=== PATIENT | male | born 1965 | race Caucasian/White ===

== ENCOUNTER 2019-11-12 20:48 | Emergency (ER) | payer SELFPAY ==
[~2019-11-12] VITALS: Ht 170.2 cm; Wt 78.0 kg
[2019-11-12 20:56] VITALS: BP 121/82
[2019-11-12] MEDS ORDERED: HYDR-3165 PO (21:18)
--- NOTE | 2019-11-12 21:19 | PHYS DOC ---
Past History Past Medical History: No Pertinent History Past Surgical History: No Surgical History Alcohol Use: Occasionally Drug Use: None Adult General Chief Complaint Chief Complaint: DENTAL PROBLEM HPI HPI 54-year-old male presents with left upper dental pain. The patient has had a toothache intermittently hurts in this area for a few months. This morning, the pain increased significantly and the patient now has 7 out of 10 persistent sharp pain in the left upper molar. He does not currently have a dentist. The patient denies fever or chills. He has no other complaints. Review of Systems Review of Systems Constitutional: Denies fever or chills [] Eyes: Denies change in visual acuity, redness, or eye pain [] HENT: Denies nasal congestion or sore throat. Dental pain [] Respiratory: Denies cough or shortness of breath [] Cardiovascular: No additional information not addressed in HPI [] GI: Denies abdominal pain, nausea, vomiting, bloody stools or diarrhea [] : Denies dysuria or hematuria [] Musculoskeletal: Denies back pain or joint pain [] Integument: Denies rash or skin lesions [] Neurologic: Denies headache, focal weakness or sensory changes [] Endocrine: Denies polyuria or polydipsia [] All other systems were reviewed and found to be within normal limits, except as documented in this note. Allergies Allergies Allergies Coded Allergies Type Severity Reaction Last Updated Verified Penicillins Allergy Intermediate 11/12/19 Yes Physical Exam Physical Exam Constitutional: Well developed, well nourished, no acute distress, non-toxic appearance. [] HENT: Normocephalic, atraumatic, bilateral external ears normal, oropharynx moist, no oral exudates, nose normal. Tenderness of the left upper dental area, broken tooth #15 [] Eyes: PERRLA, EOMI, conjunctiva normal, no discharge. [] Neck: Normal range of motion, no tenderness, supple, no stridor. [] Cardiovascular:Heart rate regular rhythm, no murmur [] Lungs & Thorax: Bilateral breath sounds clear to auscultation [] Abdomen: Bowel sounds normal, soft, no tenderness, no masses, no pulsatile masses. [] Skin: Warm, dry, no erythema, no rash. [] Back: No tenderness, no CVA tenderness. [] Extremities: No tenderness, no cyanosis, no clubbing, ROM intact, no edema. [] Neurologic: Alert and oriented X 3, normal motor function, normal sensory function, no focal deficits noted. [] Psychologic: Affect normal, judgement normal, mood normal. [] Current Patient Data Vital Signs Vital Signs Date Time Temp Pulse Resp B/P (MAP) Pulse Ox O2 Delivery O2 Flow Rate FiO2 11/12/19 20:56 98.2 70 16 96 Room Air EKG EKG [] Radiology/Procedures Radiology/Procedures [] Course & Med Decision Making Course & Med Decision Making Pertinent Labs and Imaging studies reviewed. (See chart for details) I checked the narcotic database and the patient has no injuries to last 2 years. He does appear to be in moderate to severe pain. I will give him one Bailey 7.5 in the ED and a short prescription of Bailey 5/325 for home. I will also place him on clindamycin prophylactically to prevent infection for 7 days. We will also give the first dose in the ED. He is stable for discharge at this time. [] Dragon Disclaimer Dragon Disclaimer This electronic medical record was generated, in whole or in part, using a voice recognition dictation system. Departure Departure: Impression: Primary Impression: Tooth fracture Disposition: HOME, SELF-CARE Condition: STABLE Referrals: PCP,NO (PCP) Patient Instructions: Tooth Fracture Scripts Hydrocodone Bit/Acetaminophen (NORCO 5-325 TABLET) 1 Each Tablet 1 TAB PO PRN Q6HRS PRN for PAIN, #10 TAB 0 Refills Prov: JOHANN GAMEZ DO 11/12/19 Problem Qualifiers Primary Impression: Tooth fracture Encounter type: initial encounter Fracture type: closed Qualified Codes: S02.5XXA - Fracture of tooth (traumatic), initial encounter for closed fracture JOHANN GAMEZ DO Nov 12, 2019 21:19
[2019-11-12] MEDS ORDERED: CLINDAMYCIN HCL 150 MG CAPSULE PO ONE (21:30)
[2019-11-12] MEDS ORDERED: HYDROcodone/APAP 7.5/325MG 1 TAB TABLET PO ONE (21:30)
== END 2019-11-12 21:31 | disposition home or self-care (01) ==
LOC: ER 20:48
DX: S02.5XXA Fracture of tooth (traumatic), initial encounter for closed fracture (principal); Z88.0 Allergy status to penicillin; X58.XXXA Exposure to other specified factors, initial encounter; Y93.89 Activity, other specified; Y92.89 Other specified places as the place of occurrence of the external cause; Y99.8 Other external cause status
CPT/HCPCS: 99283

== ENCOUNTER 2020-06-30 13:06 | Emergency (ER) | payer SELFPAY ==
[~2020-06-30] VITALS: Ht 167.6 cm; Wt 72.7 kg
[~2020-06-30 13:06] MED LIST: HYDR-3165 PO
[2020-06-30] MEDS ORDERED: MAG HYDROX/AL HYDROX/SIMETH 30 ML ORAL.SUSP PO ONE (13:45)
[2020-06-30] MEDS ORDERED: IOHEXOL 300 MG/ML 75 ML VIAL. IV ONE (13:45)
[2020-06-30] MEDS ORDERED: PANTOPRAZOLE IV 40 MG VIAL. IVP ONE (13:45)
[2020-06-30] MEDS ORDERED: FAMOTIDINE 20 MG TABLET PO ONE (13:45)
[2020-06-30] MEDS ORDERED: ONDANSETRON PF 4 MG/2 ML VIAL. IVP ONE (13:45)
[2020-06-30] MEDS ORDERED: CONTRAST GIVEN. MC PRN (13:45)
--- NOTE | 2020-06-30 13:46 | PHYS DOC ---
Past History Past Medical History: No Pertinent History Past Surgical History: No Surgical History Alcohol Use: Occasionally Drug Use: None General Adult EDM: Chief Complaint: ABDOMINAL PAIN HPI: HPI: The history was obtained from the patient. Patient is a 55-year-old male with no reported PMH who presents with a chief complaint of abdominal pain. Patient states he has had intermittent abdominal discomfort for the past month. He states it is diffuse in nature. He states the pain is aching and burning. He states some foods seem to worsen the pain occasionally but he cannot spec ifically state which foods. He states the pain is relieved with nothing. He has not tried anything. Denies any vomiting or nausea. Denies any metallic taste or belching. Denies any dysuria or hematuria. He denies any testicular pain or swelling. Denies any changes to stool caliber or consistency. Denies any history of fevers. Denies daily alcohol usage. Does endorse tobacco abuse. Denies any previous abdominal surgeries. No other complaints. Review of Systems: Review of Systems: Constitutional: Denies fever or chills Eyes: Denies change in visual acuity HENT: Denies nasal congestion or sore throat Respiratory: Denies cough or shortness of breath Cardiovascular: Denies chest pain or edema GI: Positive for abdominal pain : Denies dysuria Musculoskeletal: Denies back pain or joint pain Integument: Denies rash Neurologic: Denies headache, focal weakness or sensory changes Endocrine: Denies polyuria or polydipsia Lymphatic: Denies swollen glands Psychiatric: Denies depression or anxiety Heart Score: Risk Factors: Risk Factors: DM, Current or recent (<one month) smoker, HTN, HLP, family history of CAD, obesity. Risk Scores: Score 0 - 3: 2.5% MACE over next 6 weeks - Discharge Home Score 4 - 6: 20.3% MACE over next 6 weeks - Admit for Clinical Observation Score 7 - 10: 72.7% MACE over next 6 weeks - Early Invasive Strategies Current Medications: Current Meds: Current Medications Medications (Trade) Dose Ordered Sig/Martina Start Time Stop Time Status Last Admin Dose Admin Al Hydroxide/Mg Hydroxide (Mylanta Plus Xs) 30 ml 1X ONCE 06/30/20 13:45 06/30/20 13:46 UNV Famotidine (Pepcid) 20 mg 1X ONCE 06/30/20 13:45 06/30/20 13:46 UNV Ondansetron HCl (Zofran) 4 mg 1X ONCE 06/30/20 13:45 06/30/20 13:46 UNV Pantoprazole Sodium (Protonix Vial) 40 mg 1X ONCE 06/30/20 13:45 06/30/20 13:46 UNV Allergies: Allergies: Allergies Coded Allergies Type Severity Reaction Last Updated Verified Penicillins Allergy Intermediate 11/12/19 Yes Physical Exam: PE: Constitutional: Well developed, well nourished, no acute distress, non-toxic appearance. [] HENT: Normocephalic, atraumatic, bilateral external ears normal, oropharynx moist, no oral exudates, nose normal. [] Eyes: PERRLA, EOMI, conjunctiva normal, no discharge. [] Neck: Normal range of motion, no tenderness, supple, no stridor. [] Cardiovascular:Heart rate regular rhythm, no murmur [] Lungs & Thorax: Bilateral breath sounds clear to auscultation [] Abdomen: Mild diffuse tenderness to palpation. No involuntary guarding or rigidity noted. : Testicles without tenderness to palpation. No inguinal masses palpated. Circumcised penis. Skin: Warm, dry, no erythema, no rash. [] Back: No tenderness, no CVA tenderness. [] Extremities: No tenderness, no cyanosis, no clubbing, ROM intact, no edema. [] Neurologic: Alert and oriented X 3, normal motor function, normal sensory function, no focal deficits noted. [] Psychologic: Affect normal, judgement normal, mood normal. [] Current Patient Data: Labs: Laboratory Tests Test 06/30/20 13:34 White Blood Count 8.5 x10^3/uL Red Blood Count 5.41 x10^6/uL Hemoglobin 16.2 g/dL Hematocrit 48.6 % Mean Corpuscular Volume 90 fL Mean Corpuscular Hemoglobin 30 pg Mean Corpuscular Hemoglobin Concent 33 g/dL Red Cell Distribution Width 13.5 % Platelet Count 298 x10^3/uL Neutrophils (%) (Auto) 61 % Lymphocytes (%) (Auto) 29 % Monocytes (%) (Auto) 5 % Eosinophils (%) (Auto) 4 % Basophils (%) (Auto) 1 % Neutrophils # (Auto) 5.2 x10^3uL Lymphocytes # (Auto) 2.5 x10^3/uL Monocytes # (Auto) 0.4 x10^3/uL Eosinophils # (Auto) 0.3 x10^3/uL Basophils # (Auto) 0.1 x10^3/uL Sodium Level 141 mmol/L Potassium Level 3.8 mmol/L Chloride Level 103 mmol/L Carbon Dioxide Level 31 mmol/L Anion Gap 7 Blood Urea Nitrogen 12 mg/dL Creatinine 1.3 mg/dL Estimated GFR (Cockcroft-Gault) 57.7 BUN/Creatinine Ratio 9 Glucose Level 100 mg/dL Calcium Level 9.1 mg/dL Total Bilirubin 0.5 mg/dL Direct Bilirubin 0.1 mg/dL Aspartate Amino Transf (AST/SGOT) 14 U/L Alanine Aminotransferase (ALT/SGPT) 16 U/L Alkaline Phosphatase 85 U/L Total Protein 7.1 g/dL Albumin 3.6 g/dL Albumin/Globulin Ratio 1.0 Lipase 78 U/L Current Medications Medications (Trade) Dose Ordered Sig/Martina Route PRN Reason Start Time Stop Time Status Last Admin Dose Admin Famotidine (Pepcid) 20 mg 1X ONCE PO 06/30/20 13:45 06/30/20 13:46 DC 06/30/20 13:46 Ondansetron HCl (Zofran) 4 mg 1X ONCE IVP 06/30/20 13:45 06/30/20 13:46 DC 06/30/20 13:46 Pantoprazole Sodium (Protonix Vial) 40 mg 1X ONCE IVP 06/30/20 13:45 06/30/20 13:46 DC Al Hydroxide/Mg Hydroxide (Mylanta Plus Xs) 30 ml 1X ONCE PO 06/30/20 13:45 06/30/20 13:46 DC 06/30/20 13:46 Iohexol (Omnipaque 300 Mg/ml) 75 ml 1X ONCE IV 06/30/20 13:45 06/30/20 13:46 DC 06/30/20 13:56 Info (Do NOT chart on this entry -- for MONITORING) 1 each PRN DAILY PRN MC SEE COMMENTS 06/30/20 13:45 07/02/20 13:44 EKG: EKG: [] Radiology/Procedures: Radiology/Procedures: [] Course & Med Decision Making: Course & Med Decision Making Pertinent Labs and Imaging studies reviewed. (See chart for details) Patient is a well-appearing 55-year-old male who presents with chief complaint of diffuse intermittent abdominal pain over the past month or 2. Initial vital signs unremarkable. Exam unremarkable noted above. CT imaging was obtained. Nonspecific left adrenal mass was identified. I do not feel this explains the patient's current symptoms. I did notified him of this incidental imaging finding and encouraged him to follow-up with his primary care physician. Remainder of CAT scan is nonacute. Labs been reassuring. Urinalysis was attempted to be obtained but the patient states he does not have to urinate. He is requesting discharge home after medication. Given is not having any urinary symptoms this will be discontinued. Low suspicion for UTI. I feel symptoms could related to dyspepsia. He will be discharged home with Pepcid, Bentyl, and Zofran as needed. He was given a list of primary care doctors to follow-up with. He was instructed to return in 2 to 3 days should his symptoms not improve or worsen. He expressed understanding. He has tolerated p.o. Repeat abdominal exam remains benign. Stable for discharge home. Cornelius Disclaimer: Cornelius Disclaimer: This electronic medical record was generated, in whole or in part, using a voice recognition dictation system. Departure Departure: Impression: Primary Impression: Generalized abdominal pain Additional Impression: Left adrenal mass Disposition: 01 HOME/RESIDENCE PRIOR TO ADM Condition: GOOD Referrals: PCPARABELLA (PCP) Patient Instructions: Heartburn Additional Instructions: Please return the emergency department 2 to 3 days should your symptoms not improve or worsen. Please follow-up with your primary care physician in the next week. Scripts Famotidine (PEPCID) 20 Mg Tablet 20 MG PO BID for dyspepsia for 7 Days, #14 TAB Prov: KIMBERLI SENIOR DO 06/30/20 Dicyclomine Hcl (DICYCLOMINE HCL) 20 Mg Tablet 20 MG PO QIDPRN PRN for PAIN, #16 TAB Prov: KIMBERLI SENIOR DO 06/30/20 Ondansetron Hcl (ZOFRAN) 8 Mg Tablet 4 MG PO TID PRN PRN for NAUSEA, #9 TAB Prov: KIMBERLI SENIOR DO 06/30/20 Justification of Admission: Justification of Admission: Justification of Admission Dx: N/A KIMBERLI SENIOR DO Jun 30, 2020 13:46
[2020-06-30 13:53] LABS: BASO # 0.1 x10^3/uL (0.0-0.2); BASO % 1 % (0-3); EOS # 0.3 x10^3/uL (0.0-0.7); EOS % 4 % (0-3); HEMATOCRIT 48.6 % (39.0-53.0); HEMOGLOBIN 16.2 g/dL (13.0-17.5); LYMPH # 2.5 x10^3/uL (1.0-4.8); LYMPH % 29 % (24-48); MEAN CORPUSCULAR HEMOGLOBIN 30 pg (25-35); MEAN CORPUSCULAR HGB CONC 33 g/dL (31-37); MEAN CORPUSCULAR VOLUME 90 fL (79-100); MONO # 0.4 x10^3/uL (0.0-1.1); MONO % 5 % (0-9); NEUT # 5.2 x10^3uL (1.8-7.7); NEUT % 61 % (31-73); PLATELET COUNT 298 x10^3/uL (140-400); RED BLOOD COUNT 5.41 x10^6/uL (4.30-5.70); RED CELL DISTRIBUTION WIDTH 13.5 % (11.5-14.5); WHITE BLOOD COUNT 8.5 x10^3/uL (4.0-11.0)
[2020-06-30 14:01] LABS: CALCIUM 9.1 mg/dL (8.5-10.1); CREATININE 1.3 mg/dL (0.7-1.3); GFR 57.7; POTASSIUM 3.8 mmol/L (3.5-5.1)
[2020-06-30 14:08] LABS: ALBUMIN 3.6 g/dL (3.4-5.0); DIRECT BILIRUBIN 0.1 mg/dL (0.0-0.2); TOTAL BILIRUBIN 0.5 mg/dL (0.2-1.0); TOTAL PROTEIN 7.1 g/dL (6.4-8.2)
--- NOTE | 2020-06-30 14:18 | RAD ---
CT abdomen pelvis with contrast dated 06/30/2020. No comparison available. CLINICAL INDICATION: Diffuse abdominal pain. TECHNIQUE: Contiguous axial imaging the M pelvis performed after the intravenous administration of 75 cc Omnipaque 300. One or more of the following individualized dose reduction techniques were utilized for this examination: 1. Automated exposure control 2. Adjustment of the mA and/or kV according to patient size 3. Use of iterative reconstruction technique. FINDINGS: Limited images of lung bases are clear. Heart size within normal limits. No pleural or pericardial effusion. Liver is homogeneous. No focal hepatic mass. Biliary tree normal in caliber. Gallbladder unremarkable. Spleen is normal in size. Pancreas is unremarkable. There is a 3.4 cm mass at the left adrenal gland. The right adrenal gland is unremarkable. Kidneys are unremarkable. No hydronephrosis. Unopacified GI tract normal in caliber and contour. No focal bowel wall thickening. No inflammatory stranding in the mesentery. The appendix is normal in caliber. There are few scattered diverticula within the distal colon. No paracolonic inflammatory changes. No ascites or lymphadenopathy. Abdominal aorta normal in caliber. Images of the pelvis show nondistended urinary bladder. Prostate gland is upper limits of normal in size. No free fluid or pelvic lymphadenopathy. Bone windows show no acute findings. Mild multilevel spondylosis. IMPRESSION: 1. No acute abnormality of abdomen or pelvis. Normal appendix. 2. Indeterminate mass at the left adrenal gland. Statistically this most likely represents a benign lesion such as adrenal adenoma. Adrenal MRI would better evaluate, particularly if there is a known history of malignancy. 3. Diverticulosis with no evidence of acute diverticulitis. Electronically signed by: Allan Simpson MD (06/30/2020 2:15 PM) [id number]
[2020-06-30] MEDS ORDERED: DICY20TA3 PO (14:30)
[2020-06-30] MEDS ORDERED: ONDA8TAB9 PO (14:30)
[2020-06-30] MEDS ORDERED: FAMO-63 PO (14:30)
[2020-06-30 14:36] VITALS: BP 130/88
== END 2020-06-30 14:40 | disposition home or self-care (01) ==
LOC: ER 13:06
DX: E27.8 Other specified disorders of adrenal gland (principal); R10.84 Generalized abdominal pain; Z72.0 Tobacco use; Z88.0 Allergy status to penicillin
CPT/HCPCS: 36415; 74177; 80053; 80076; 83690; 85025; 96374; 96375; 99285; C9113; J2405; Q9967

== ENCOUNTER 2020-09-01 18:24 | Emergency (ER) | payer SELFPAY ==
[~2020-09-01] VITALS: Ht 167.6 cm; Wt 70.0 kg
[~2020-09-01 18:24] MED LIST changes: +DICY20TA3 PO; +FAMO-63 PO; +ONDA8TAB9 PO
--- NOTE | 2020-09-01 18:46 | PHYS DOC ---
Past History Past Medical History: No Pertinent History Past Surgical History: No Surgical History Smoking: Cigarettes Alcohol Use: Occasionally Drug Use: Cocaine, Marijuana General Adult EDM: Chief Complaint: ABDOMINAL PAIN HPI: HPI: " .. I ve been really hurting in my gut... I had something like this back in June.. I am not sure ..whats going. on...".." really I have had chronic intermittent abdomen pain for months".. Patient is a 55 year old male who presents with above hx and complaints severe generalized abd. pain. Pt. had previous episode of severe abdomen pain in June of this year. Pt. denies any specific ill contacts. Patient denies any recent travel. Has had problems with GERD type complaints in the past. Has had some sensitivity to spicy foods or high-fat foods. Patient does not use alcohol daily. Does smoke. No previous abdomen surgeries. Patient denies any specific ill contacts. Patient denies any history of immunosuppression. Patient denies any history of colitis and gallbladder disease with him . Patient is adopted so he does not know much family history. Patient does relate his recently had an STD but does not know the name of infection. Patient denies any dysuria. Review of Systems: Review of Systems: Constitutional: Denies fever or chills Eyes: Denies change in visual acuity HENT: Denies nasal congestion or sore throat Respiratory: Denies cough or shortness of breath Cardiovascular: Denies chest pain or edema GI: Complains of generalized abdominal pain, nausea. Denies, vomiting, bloody stools or diarrhea : Denies dysuria Musculoskeletal: Denies back pain or joint pain Integument: Denies rash Neurologic: Denies headache, focal weakness or sensory changes Endocrine: Denies polyuria or polydipsia Lymphatic: Denies swollen glands Psychiatric: Denies depression or anxiety Heart Score: HEART Score for Chest Pain: HEART Score for Chest Pain Response (Comments) Value History Slighlty/Non-Suspicious 0 ECG Normal 0 Age >45 - < 65 1 Risk Factors 1 or 2 Risk Factors 1 Troponin < Normal Limit 0 Total 2 Risk Factors: Risk Factors: DM, Current or recent (<one month) smoker, HTN, HLP, family history of CAD, obesity. Risk Scores: Score 0 - 3: 2.5% MACE over next 6 weeks - Discharge Home Score 4 - 6: 20.3% MACE over next 6 weeks - Admit for Clinical Observation Score 7 - 10: 72.7% MACE over next 6 weeks - Early Invasive Strategies Family History: Family History: Patient is adopted and does not know family history Current Medications: Current Meds: See nursing for home meds Allergies: Allergies: Allergies Coded Allergies Type Severity Reaction Last Updated Verified Penicillins Allergy Intermediate 11/12/19 Yes Physical Exam: PE: Constitutional: Moderate acute distress, non-toxic appearance. [] HENT: Normocephalic, atraumatic, bilateral external ears normal, oropharynx moist, no oral exudates, nose normal. [] Eyes: PERRLA, EOMI, conjunctiva normal, no discharge. [] Neck: Normal range of motion, no tenderness, supple, no stridor. [] Cardiovascular:Heart rate regular rhythm, no murmur [] Lungs & Thorax: Bilateral breath sounds equal with few scattered wheezes on auscultation [] Abdomen: Bowel sounds decreased, soft, generalized tenderness, no masses, no pul satile masses. [] Rebound to epigastric and agustina umbilical area. Circumcised male. Testicles nontender. No penile discharge. Skin: Warm, dry, no erythema, no rash. [] Back: No tenderness, no CVA tenderness. [] Extremities: No tenderness, no cyanosis, no clubbing, ROM intact, no edema. Mild psoas on right Neurologic: Alert and oriented X 3, normal motor function, normal sensory function, no focal deficits noted. [] Psychologic: Affect anxious , judgement normal, mood normal. [] Current Patient Data: Vital Signs: Vital Signs Date Time Temp Pulse Resp B/P (MAP) Pulse Ox O2 Delivery O2 Flow Rate FiO2 09/01/20 18:33 98.3 60 16 113/70 (84) 99 Room Air EKG: EKG: My interpretation EKG shows a sinus rhythm at 61 bpm. Slightly prolonged CA interval at 224 ms. [] Radiology/Procedures: Radiology/Procedures: [[address] [address] IMAGING REPORT Signed PATIENT: MARIA A BRANCH DACCOUNT: [id number] : 1965 LOCATION: ER AGE: 55 SEX: M EXAM STATUS: REG ER ORD. PHYSICIAN: RUTH PEACE MD REASON: pain, OMNI 300, 75ml & OMNI 240, 30ml PROCEDURE: CT ABD PELV W/ORAL&IV CONTRAST Exam: CT of abdomen and pelvis with contrast INDICATION: Pain TECHNIQUE: Sequential axial images through the abdomen and pelvis obtained following the administration of 75 mL of Omni 300 IV contrast. Sagittal and coronal reformatted images were reconstructed from the axial data and reviewed. Comparisons: 06/30/2020 FINDINGS: Heart size is normal. No pericardial effusion. Visualized lung bases are clear. No pleural effusion. Liver, spleen, pancreas, and gallbladder are unremarkable. There is a 3.1 cm nodule in the left adrenal gland. Kidneys demonstrate symmetric enhancement. No perinephric inflammation or hydronephrosis. No renal or ureteral calculi are identified. Bladder is distended and appears thin-walled. Prostate is not enlarged. Large and small bowel are unremarkable. Appendix is normal. No free intra-abdominal air or fluid. No obstruction. Abdominal aorta has a normal course and caliber. Abdominal vasculature is patent. No enlarged abdominal lymph nodes are identified. No suspicious osseous lesions or acute fractures. IMPRESSION: 1. No acute processes identified within the abdomen or pelvis. 2. There is a 3.1 cm nodule in the left adrenal gland. This is incompletely characterized on this study. Further evaluation with nonemergent/outpatient adrenal protocol CT or MRI is recommended. Exposure: One or more of the following in the visualized dose reduction techniques were utilized for this examination: 1. Automated exposure control 2. Adjustment of the MA and/or KV according to patient size 3. Use of iterative of reconstructive technique Electronically signed by: Giorgi Loomis MD (09/01/2020 11:18 PM) [id number] DICTATED AND SIGNED BY: GIORGI LOOMIS MD DATE: 09/01/20 2318 CC: RUTH PEACE MD; PCP,NO ~ ][address] [address] IMAGING REPORT Signed PATIENT: MARIA A BRANCH DACCOUNT: [id number] : 1965 LOCATION: ER AGE: 55 SEX: M EXAM STATUS: REG ER ORD. PHYSICIAN: RUTH PEACE MD REASON: pain PROCEDURE: ACUTE ABDOMEN SERIES Exam: Acute abdominal series INDICATION: Pain TECHNIQUE: Frontal view of the chest with upright and supine views the abdomen Comparisons: None FINDINGS: The cardiomediastinal silhouette and pulmonary vessels are within normal limits. The lung and pleural spaces are clear. Air and stool are noted throughout the colon to level the rectum in a nonobstructive bowel gas pattern. No suspicious masses or calcifications. Visualized osseous structures are unremarkable. IMPRESSION: 1. No acute cardiopulmonary process. 2. Nonobstructive bowel gas pattern. Electronically signed by: Giorgi Loomis MD (09/01/2020 7:35 PM) [id number] DICTATED AND SIGNED BY: GIORGI LOOMIS MD DATE: 09/01/201934 CC: RUTH PEACE MD; PCP,NO ~ Course & Med Decision Making: Course & Med Decision Making Pertinent Labs and Imaging studies reviewed. (See chart for details) [] Patient encouraged to have a clear fluid diet for the next 48 hours. No solids. No milk products. Patient avoid illicit drug use. Patient recommended to get EGD and colonoscopy. Patient will be started on Pepcid 20 mg twice sydni y. Follow-up with primary care. Return if any concerns. Impression: 1. Abdomen Pain 2. UDS 3. + Cocaine / MJ/ Tobacco Use Dragon Disclaimer: Cornelius Disclaimer: This electronic medical record was generated, in whole or in part, using a voice recognition dictation system. Departure Departure: Disposition: 01 [place] HOME SELF CARE/HOMELESS Condition: STABLE Referrals: PCP,NO (PCP) Scripts Famotidine (PEPCID) 20 Mg Tablet 20 MG PO BID for gastritis for 30 Days, #60 TAB Prov: RUTH PEACE MD 09/02/20 Dragnia Disclaimer This chart was dictated in whole or in part using Voice Recognition software in a busy, high-work load, and often noisy Emergency Department environment. It may contain unintended and wholly unrecognized errors or omissions. RUTH PEACE MD Sep 01, 2020 18:46
[2020-09-01] MEDS: IV RINGERS SOLUTION,LACTATED 1,000 ML IV SCH (18:50)
[2020-09-01] MEDS: KETOROLAC 30 MG/ML VIAL. IVP ONE (18:51)
[2020-09-01] MEDS: ONDANSETRON PF 4 MG/2 ML VIAL. IVP ONE (18:51)
[2020-09-01] MEDS: FAMOTIDINE 20 MG/2 ML VIAL IVP ONE (18:51)
[2020-09-01 19:00] LABS: BASO # 0.1 x10^3/uL (0.0-0.2); BASO % 1 % (0-3); EOS # 0.3 x10^3/uL (0.0-0.7); EOS % 4 % (0-3); HEMATOCRIT 44.2 % (39.0-53.0); HEMOGLOBIN 14.7 g/dL (13.0-17.5); LYMPH # 3.1 x10^3/uL (1.0-4.8); LYMPH % 33 % (24-48); MEAN CORPUSCULAR HEMOGLOBIN 30 pg (25-35); MEAN CORPUSCULAR HGB CONC 33 g/dL (31-37); MEAN CORPUSCULAR VOLUME 89 fL (79-100); MONO # 0.6 x10^3/uL (0.0-1.1); MONO % 6 % (0-9); NEUT # 5.2 x10^3uL (1.8-7.7); NEUT % 56 % (31-73); PLATELET COUNT 300 x10^3/uL (140-400); RED BLOOD COUNT 4.95 x10^6/uL (4.30-5.70); RED CELL DISTRIBUTION WIDTH 13.9 % (11.5-14.5); WHITE BLOOD COUNT 9.3 x10^3/uL (4.0-11.0)
--- NOTE | 2020-09-01 19:04 | EKG ---
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
[2020-09-01 19:08] LABS: CALCIUM 8.9 mg/dL (8.5-10.1); CREATININE 1.1 mg/dL (0.7-1.3); POTASSIUM 3.6 mmol/L (3.5-5.1)
[2020-09-01 19:14] LABS: ALBUMIN 3.4 g/dL (3.4-5.0); DIRECT BILIRUBIN 0.1 mg/dL (0.0-0.2); TOTAL BILIRUBIN 0.3 mg/dL (0.2-1.0); TOTAL PROTEIN 6.8 g/dL (6.4-8.2)
--- NOTE | 2020-09-01 19:38 | RAD ---
Exam: Acute abdominal series INDICATION: Pain TECHNIQUE: Frontal view of the chest with upright and supine views the abdomen Comparisons: None FINDINGS: The cardiomediastinal silhouette and pulmonary vessels are within normal limits. The lung and pleural spaces are clear. Air and stool are noted throughout the colon to level the rectum in a nonobstructive bowel gas pattern. No suspicious masses or calcifications. Visualized osseous structures are unremarkable. IMPRESSION: 1. No acute cardiopulmonary process. 2. Nonobstructive bowel gas pattern. Electronically signed by: Giorgi Lee MD (09/01/2020 7:35 PM) [id number]
[2020-09-01 20:06] LABS: BARBITURATES NEG (NEG); BENZODIAZEPINES NEG (NEG); CANNABINOIDS POS (NEG); COCAINE POS (NEG); METHADONE NEG (NEG); OPIATES NEG (NEG); PHENCYCLIDINE NEG (NEG)
[2020-09-01 20:07] LABS: BILIRUBIN,URINE SMALL (NEG); CLARITY,URINE CLEAR; COLOR,URINE AMBER; GLUCOSE,URINE NEG (NEG)
[2020-09-01 20:11] LABS: BACTERIA,URINE 0 /HPF (0-FEW); NITRITE,URINE NEG (NEG); SQUAMOUS EPITHELIAL CELL,UR OCC /LPF
[2020-09-01 20:13] LABS: AMPHETAMINE/METHAMPHETAMINE NEG (NEG)
[2020-09-01] MEDS ORDERED: CONTRAST GIVEN. MC PRN (21:45)
[2020-09-01] MEDS: IOHEXOL 240 MG/ML 50ML VIAL. PO ONE (22:56)
[2020-09-01] MEDS: IOHEXOL 300 MG/ML 75 ML VIAL. IV ONE (22:56)
--- NOTE | 2020-09-01 23:21 | RAD ---
Exam: CT of abdomen and pelvis with contrast INDICATION: Pain TECHNIQUE: Sequential axial images through the abdomen and pelvis obtained following the administration of 75 mL of Omni 300 IV contrast. Sagittal and coronal reformatted images were reconstructed from the axial data and reviewed. Comparisons: 06/30/2020 FINDINGS: Heart size is normal. No pericardial effusion. Visualized lung bases are clear. No pleural effusion. Liver, spleen, pancreas, and gallbladder are unremarkable. There is a 3.1 cm nodule in the left adrenal gland. Kidneys demonstrate symmetric enhancement. No perinephric inflammation or hydronephrosis. No renal or ureteral calculi are identified. Bladder is distended and appears thin-walled. Prostate is not enlarged. Large and small bowel are unremarkable. Appendix is normal. No free intra-abdominal air or fluid. No obstruction. Abdominal aorta has a normal course and caliber. Abdominal vasculature is patent. No enlarged abdominal lymph nodes are identified. No suspicious osseous lesions or acute fractures. IMPRESSION: 1. No acute processes identified within the abdomen or pelvis. 2. There is a 3.1 cm nodule in the left adrenal gland. This is incompletely characterized on this study. Further evaluation with nonemergent/outpatient adrenal protocol CT or MRI is recommended. Exposure: One or more of the following in the visualized dose reduction techniques were utilized for this examination: 1. Automated exposure control 2. Adjustment of the MA and/or KV according to patient size 3. Use of iterative of reconstructive technique Electronically signed by: Giorgi Lee MD (09/01/2020 11:18 PM) [id number]
[2020-09-02] MEDS ORDERED: FAMO-63 PO (00:50)
[2020-09-02 01:03] VITALS: BP 96/53
[2020-09-03] MEDS ORDERED: SUCR1TAB PO (03:53)
== END 2020-09-02 01:10 | disposition home or self-care (01) ==
LOC: ER 18:24
DX: R10.84 Generalized abdominal pain (principal); F14.90 Cocaine use, unspecified, uncomplicated; F12.90 Cannabis use, unspecified, uncomplicated; K21.9 Gastro-esophageal reflux disease without esophagitis; F17.210 Nicotine dependence, cigarettes, uncomplicated; Z88.0 Allergy status to penicillin
CPT/HCPCS: 36415; 74022; 74177; 80048; 80076; 80307; 81001; 82550; 83690; 84484; 85025; 85610; 85730; 93005; 96361; 96374; 96375; 99285; J1885; J2405; J3490; J7120; Q9966; Q9967

== ENCOUNTER 2020-09-03 01:45 | Emergency (ER) | payer SELFPAY ==
[~2020-09-03] VITALS: Ht 167.6 cm; Wt 70.0 kg
[2020-09-03] MEDS ORDERED: FAMOTIDINE 20 MG/2 ML VIAL ONE (02:07)
--- NOTE | 2020-09-03 02:14 | PHYS DOC ---
Past History Past Medical History: No Pertinent History Past Surgical History: No Surgical History Smoking: Cigarettes Alcohol Use: Occasionally Drug Use: Cocaine, Marijuana General Adult EDM: Chief Complaint: ABDOMINAL PAIN HPI: HPI: Patient is a 55-year-old male coming in via EMS for periumbilical abdominal pain. Patient states the pain radiates to the back is unchanged by movement or food. He was seen here last night for the same problem with unremarkable work- up. Patient has had this pain for 3 to 4 months and this is the third hospital visit. Patient states that he does not have the money to have his prescribed medications filled. No vomiting, diarrhea, last bowel movement normal this morning. Denies any fevers, cough, chest pain. No food allergies. No changes in urination. Patient states he drinks alcohol once per month. Review of Systems: Review of Systems: Constitutional: Denies fever or chills Eyes: Denies change in visual acuity HENT: Denies nasal congestion or sore throat Respiratory: Denies cough or shortness of breath Cardiovascular: Denies chest pain or edema GI: Abdominal pain. Denies nausea, vomiting, bloody stools or diarrhea : Denies dysuria Musculoskeletal: Denies back pain or joint pain Integument: Denies rash Neurologic: Denies headache, focal weakness or sensory changes Endocrine: Denies polyuria or polydipsia Lymphatic: Denies swollen glands Psychiatric: Denies depression or anxiety Heart Score: Risk Factors: Risk Factors: DM, Current or recent (<one month) smoker, HTN, HLP, family history of CAD, obesity. Risk Scores: Score 0 - 3: 2.5% MACE over next 6 weeks - Discharge Home Score 4 - 6: 20.3% MACE over next 6 weeks - Admit for Clinical Observation Score 7 - 10: 72.7% MACE over next 6 weeks - Early Invasive Strategies Current Medications: Current Meds: Current Medications Medications (Trade) Dose Ordered Sig/Martina Start Time Stop Time Status Last Admin Dose Admin Famotidine (Pepcid Vial) 20 mg STK-MED ONCE 09/03/20 02:07 09/03/20 02:08 DC Multi-Ingredient Mouthwash/Gargle (Gi Cocktail) 20 ml 1X ONCE 09/03/20 02:30 09/03/20 02:31 Allergies: Allergies: Allergies Coded Allergies Type Severity Reaction Last Updated Verified Penicillins Allergy Intermediate 09/03/20 Yes Physical Exam: PE: Constitutional: Well developed, well nourished, no acute distress, non-toxic appearance. [] HENT: Normocephalic, atraumatic, bilateral external ears normal, oropharynx moist, no oral exudates, nose normal. [] Eyes: PERRLA, EOMI, conjunctiva normal, no discharge. [] Neck: Normal range of motion, no tenderness, supple, no stridor. [] Cardiovascular:Heart rate regular rhythm, no murmur [] Lungs & Thorax: Bilateral breath sounds clear to auscultation [] Abdomen: Bowel sounds normal, soft, voluntary guarding and tenderness, no masses, no pulsatile masses. [] Skin: Warm, dry, no erythema, no rash. [] Back: No tenderness, no CVA tenderness. [] Extremities: No tenderness, no cyanosis, no clubbing, ROM intact, no edema. [] Neurologic: Alert and oriented X 3, normal motor function, normal sensory fu nction, no focal deficits noted. [] Psychologic: Affect normal, judgement normal, mood normal. [] Current Patient Data: Vital Signs: Vital Signs Date Time Temp Pulse Resp B/P (MAP) Pulse Ox O2 Delivery O2 Flow Rate FiO2 09/03/20 01:45 98.0 60 18 134/88 (103) 97 EKG: EKG: [] Radiology/Procedures: Radiology/Procedures: [] EXAM: ACUTE ABDOMEN SERIES 09/03/2020 1:58 AM CLINICAL INDICATION: Abdominal pain COMPARISON: Abdominal series radiograph 09/01/[address] abdomen pelvis 10/11/2020 TECHNIQUE: AP supine and upright views of abdomen and PA view of the chest FINDINGS: There is enteric contrast in the colon. Bowel gas pattern is nonspecific and nonobstructive. Normal volume of stool. No pneumoperitoneum. The heart and lungs are normal. No acute osseous abnormality. IMPRESSION: Normal chest and abdomen. Course & Med Decision Making: Course & Med Decision Making Pertinent Labs and Imaging studies reviewed. (See chart for details) Again unremarkable work-up. Discussed the need for taking medications as prescribed and following up, given information for [facility]. [] Cornelius Disclaimer: Cornelius Disclaimer: This electronic medical record was generated, in whole or in part, using a voice recognition dictation system. Departure Departure: Disposition: HOME SELF CARE/HOMELESS Condition: STABLE Referrals: PCP,ARABELLA (PCP) [place] [address] Patient Instructions: Gastritis, Adult Additional Instructions: Avoid spicy foods, caffeine, citrus, and alcohol. Take medications as prescrib ed every day. Follow-up with [facility] or other primary care to facilitate further care and GI referral. Take famotidine twice a day. May take sucralfate up to 3 times a day 2 hours before or after other medications. Scripts Sucralfate (SUCRALFATE) 1 Gm Tablet 1 TAB PO TID for gastric pain, #60 TAB 1 Refill Prov: MALDONADO BAZZI MD 09/03/20 MALDONADO BAZZI MD Sep 03, 2020 02:14
[2020-09-03] MEDS ORDERED: LIDO:MAALOX 1:1 20 ML SINGLE DOSE. PO ONE (02:30)
[2020-09-03] MEDS ORDERED: FAMOTIDINE 20 MG/2 ML VIAL IVP ONE (02:30)
--- NOTE | 2020-09-03 02:49 | RAD ---
EXAM: ACUTE ABDOMEN SERIES 09/03/2020 1:58 AM CLINICAL INDICATION: Abdominal pain COMPARISON: Abdominal series radiograph 09/01/[address] abdomen pelvis 10/11/2020 TECHNIQUE: AP supine and upright views of abdomen and PA view of the chest FINDINGS: There is enteric contrast in the colon. Bowel gas pattern is nonspecific and nonobstructive. Normal volume of stool. No pneumoperitoneum. The heart and lungs are normal. No acute osseous abnormality. IMPRESSION: Normal chest and abdomen. Electronically signed by: Montserrat Car MD (09/03/2020 2:46 AM) [id number]
[2020-09-03 02:55] LABS: BASO # 0.1 x10^3/uL (0.0-0.2); BASO % 1 % (0-3); EOS # 0.2 x10^3/uL (0.0-0.7); EOS % 2 % (0-3); HEMATOCRIT 41.1 % (39.0-53.0); HEMOGLOBIN 13.8 g/dL (13.0-17.5); LYMPH # 1.7 x10^3/uL (1.0-4.8); LYMPH % 20 % (24-48); MEAN CORPUSCULAR HEMOGLOBIN 30 pg (25-35); MEAN CORPUSCULAR HGB CONC 34 g/dL (31-37); MEAN CORPUSCULAR VOLUME 89 fL (79-100); MONO # 0.5 x10^3/uL (0.0-1.1); MONO % 5 % (0-9); NEUT # 6.3 x10^3uL (1.8-7.7); NEUT % 72 % (31-73); PLATELET COUNT 267 x10^3/uL (140-400); RED BLOOD COUNT 4.63 x10^6/uL (4.30-5.70); RED CELL DISTRIBUTION WIDTH 13.3 % (11.5-14.5); WHITE BLOOD COUNT 8.7 x10^3/uL (4.0-11.0)
[2020-09-03] MEDS ORDERED: SUCRALFATE 1 GM TABLET. PO ONE (03:00)
[2020-09-03 03:18] LABS: CALCIUM 8.7 mg/dL (8.5-10.1); GFR 78.2; POTASSIUM 3.6 mmol/L (3.5-5.1)
[2020-09-03 03:24] LABS: ALBUMIN 3.3 g/dL (3.4-5.0); ALBUMIN/GLOBULIN RATIO 1.1 (1.0-1.7); TOTAL BILIRUBIN 0.4 mg/dL (0.2-1.0); TOTAL PROTEIN 6.4 g/dL (6.4-8.2)
[2020-09-03] MEDS ORDERED: SUCR1TAB PO (03:53)
[2020-09-03 03:58] VITALS: BP 116/74
== END 2020-09-03 03:58 | disposition home or self-care (01) ==
LOC: ER 01:45
DX: R10.33 Periumbilical pain (principal); F17.210 Nicotine dependence, cigarettes, uncomplicated; Z88.0 Allergy status to penicillin
CPT/HCPCS: 36415; 74022; 80053; 83605; 83690; 84484; 85025; 85379; 96374; 96375; 99285; G0480; J3010; J3490

== ENCOUNTER 2020-09-08 02:02 | Emergency (ER) | payer SELFPAY ==
[~2020-09-08] VITALS: Ht 167.6 cm; Wt 70.3 kg
[~2020-09-08 02:02] MED LIST changes: +SUCR1TAB PO
[2020-09-08 02:38] LABS: BASO # 0.1 x10^3/uL (0.0-0.2); BASO % 1 % (0-3); EOS # 0.2 x10^3/uL (0.0-0.7); EOS % 2 % (0-3); HEMATOCRIT 43.4 % (39.0-53.0); HEMOGLOBIN 14.4 g/dL (13.0-17.5); LYMPH # 1.7 x10^3/uL (1.0-4.8); LYMPH % 19 % (24-48); MEAN CORPUSCULAR HEMOGLOBIN 29 pg (25-35); MEAN CORPUSCULAR HGB CONC 33 g/dL (31-37); MEAN CORPUSCULAR VOLUME 88 fL (79-100); MONO # 0.4 x10^3/uL (0.0-1.1); MONO % 5 % (0-9); NEUT # 6.6 x10^3uL (1.8-7.7); NEUT % 73 % (31-73); PLATELET COUNT 285 x10^3/uL (140-400); RED BLOOD COUNT 4.91 x10^6/uL (4.30-5.70); RED CELL DISTRIBUTION WIDTH 13.7 % (11.5-14.5)
--- NOTE | 2020-09-08 02:44 | PHYS DOC ---
Past History Past Medical History: No Pertinent History Past Surgical History: No Surgical History Smoking: Cigarettes Alcohol Use: Occasionally Drug Use: Cocaine, Marijuana General Adult EDM: Chief Complaint: ABDOMINAL PAIN HPI: HPI: 55-year-old male presents emergency room with epigastric jamel pain. Patient has been seen in the emergency room multiple times for this complaint, the most recent 5 days ago. He has been seen at several hospitals. I asked him if he has had a work-up that was recommended with GI. He states now because he cannot afford it. I asked him if he has been taking any other medications that were prescribed and he said no because he cannot afford it. He had a CT scan 7 days ago that showed a nonspecific adrenal nodule no other significant findings. Patient denies any change in his condition. He states that he just hurts more again tonight than other days. No trauma. no fever chills Review of Systems: Review of Systems: Constitutional: Denies fever or chills Eyes: Denies change in visual acuity HENT: Denies nasal congestion or sore throat Respiratory: Denies cough or shortness of breath Cardiovascular: Denies chest pain or edema GI: Epigastric abdominal pain. Denies nausea, vomiting, bloody stools or diarrhea : Denies dysuria Musculoskeletal: Denies back pain or joint pain Integument: Denies rash Neurologic: Denies headache, focal weakness or sensory changes Endocrine: Denies polyuria or polydipsia Lymphatic: Denies swollen glands Psychiatric: Denies depression or anxiety Heart Score: Risk Factors: Risk Factors: DM, Current or recent (<one month) smoker, HTN, HLP, family history of CAD, obesity. Risk Scores: Score 0 - 3: 2.5% MACE over next 6 weeks - Discharge Home Score 4 - 6: 20.3% MACE over next 6 weeks - Admit for Clinical Observation Score 7 - 10: 72.7% MACE over next 6 weeks - Early Invasive Strategies Allergies: Allergies: Allergies Coded Allergies Type Severity Reaction Last Updated Verified Penicillins Allergy Intermediate 09/08/20 Yes Physical Exam: PE: Constitutional: Well developed, well nourished, no acute distress, non-toxic appearance. [] HENT: Normocephalic, atraumatic, bilateral external ears normal, oropharynx moist, no oral exudates, nose normal. [] Eyes: PERRLA, EOMI, conjunctiva normal, no discharge. [] Neck: Normal range of motion, no tenderness, supple, no stridor. [] Cardiovascular: Heart rate regular rhythm, no murmur [] Lungs & Thorax: Bilateral breath sounds clear to auscultation [] Abdomen: Bowel sounds normal, soft, mild epigastric tenderness, no masses, no pulsatile masses. [] Skin: Warm, dry, no erythema, no rash. [] Back: No tenderness, no CVA tenderness. [] Extremities: No tenderness, no cyanosis, no clubbing, ROM intact, no edema. [] Neurologic: Alert and oriented X 3, normal motor function, normal sensory function, no focal deficits noted. [] Psychologic: Affect disingenuous, judgement normal, mood normal. [] Current Patient Data: Vital Signs: Vital Signs Date Time Temp Pulse Resp B/P (MAP) Pulse Ox O2 Delivery O2 Flow Rate FiO2 09/08/20 02:09 98.1 60 28 134/76 (95) 100 Room Air EKG: EKG: [] Radiology/Procedures: Radiology/Procedures: [] Course & Med Decision Making: Course & Med Decision Making Pertinent Labs and Imaging studies reviewed. (See chart for details) The patient's abdomen is soft he only has voluntary guarding. He states that he has a lot of pain but then falls asleep without difficulty. His vitals are all normal. I do not believe he has a significant elbow pain as he claims. I do not see any indication to repeat his CT scan was only a week ago. The patient's labs are unremarkable. His AST and ALT are low. I do not have any objective reason for his discomfort other than possible gastritis and/or gallbladder issues. The patient's been told multiple times what the next step for his care planning to be. I did give him Protonix and Pepcid. He will need to prioritize his health over other things if he wants to get better. He is stable for discharge at this time. [] Dragon Disclaimer: Cornelius Disclaimer: This electronic medical record was generated, in whole or in part, using a voice recognition dictation system. Departure Departure: Impression: Primary Impression: Generalized abdominal pain Disposition: 01 DC HOME SELF CARE/HOMELESS Condition: STABLE Referrals: PCP,NO (PCP) Patient Instructions: Abdominal Pain, [id number] JOHANN GAMEZ DO Sep 08, 2020 02:44
[2020-09-08] MEDS ORDERED: PANTOPRAZOLE IV 40 MG VIAL. IVP ONE (02:45)
[2020-09-08] MEDS ORDERED: FAMOTIDINE 20 MG/2 ML VIAL IVP ONE (02:45)
[2020-09-08 02:47] LABS: CREATININE 1.3 mg/dL (0.7-1.3); GFR 57.7; POTASSIUM 3.6 mmol/L (3.5-5.1)
[2020-09-08 02:53] LABS: ALBUMIN 3.6 g/dL (3.4-5.0); ALBUMIN/GLOBULIN RATIO 1.1 (1.0-1.7); TOTAL BILIRUBIN 0.6 mg/dL (0.2-1.0); TOTAL PROTEIN 6.9 g/dL (6.4-8.2)
[2020-09-08 04:05] VITALS: BP 125/72
== END 2020-09-08 04:05 | disposition home or self-care (01) ==
LOC: ER 02:02
DX: R10.84 Generalized abdominal pain (principal); R10.13 Epigastric pain; F17.210 Nicotine dependence, cigarettes, uncomplicated; Z88.0 Allergy status to penicillin
CPT/HCPCS: 36415; 80053; 85025; 96374; 96375; 99284; C9113; J3490

== ENCOUNTER 2021-02-19 11:10 | Emergency (ER) | payer SELFPAY ==
[~2021-02-19] VITALS: Ht 170.2 cm; Wt 63.6 kg
[2021-02-19] MEDS ORDERED: ONDANSETRON PF 4 MG/2 ML VIAL. IVP ONE (11:15)
[2021-02-19] MEDS ORDERED: IV NORMAL SALINE 1,000ML 1,000 ML IV ONE ×2 (11:15→12:45)
[2021-02-19] MEDS ORDERED: PANTOPRAZOLE IV 40 MG VIAL. IVP ONE (11:15)
[2021-02-19] MEDS ORDERED: CONTRAST GIVEN. MC PRN (12:00)
[2021-02-19] MEDS ORDERED: IOHEXOL 300 MG/ML 75 ML VIAL. IV ONE (12:00)
[2021-02-19 12:10] LABS: BASO # 0.1 x10^3/uL (0.0-0.2); BASO % 1 % (0-3); EOS # 0.2 x10^3/uL (0.0-0.7); EOS % 3 % (0-3); HEMATOCRIT 48.7 % (39.0-53.0); HEMOGLOBIN 16.1 g/dL (13.0-17.5); LYMPH # 2.9 x10^3/uL (1.0-4.8); LYMPH % 33 % (24-48); MEAN CORPUSCULAR HEMOGLOBIN 30 pg (25-35); MEAN CORPUSCULAR HGB CONC 33 g/dL (31-37); MEAN CORPUSCULAR VOLUME 90 fL (79-100); MONO # 0.4 x10^3/uL (0.0-1.1); MONO % 4 % (0-9); NEUT # 5.1 x10^3uL (1.8-7.7); NEUT % 58 % (31-73); PLATELET COUNT 335 x10^3/uL (140-400); RED BLOOD COUNT 5.42 x10^6/uL (4.30-5.70); RED CELL DISTRIBUTION WIDTH 13.8 % (11.5-14.5); WHITE BLOOD COUNT 8.7 x10^3/uL (4.0-11.0)
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
[2021-02-19 12:14] LABS: CALCIUM 9.4 mg/dL (8.5-10.1); CREATININE 1.6 mg/dL (0.7-1.3); GFR 45.4; POTASSIUM 4.2 mmol/L (3.5-5.1)
[2021-02-19 12:24] LABS: ALBUMIN 3.8 g/dL (3.4-5.0); ALBUMIN/GLOBULIN RATIO 1.1 (1.0-1.7); MAGNESIUM 2.8 mg/dL (1.8-2.4); TOTAL BILIRUBIN 0.3 mg/dL (0.2-1.0); TOTAL PROTEIN 7.3 g/dL (6.4-8.2)
--- NOTE | 2021-02-19 12:46 | RAD ---
EXAM: CT Abdomen and Pelvis with IV contrast INDICATION: Reason: abdominal pain / Spl. Instructions: / History: TECHNIQUE: Multi-detector row CT images were acquired from the lung bases through the abdomen and pel vis with the use of IV contrast. Sagittal and coronal images were acquired from the transaxial data. All CT scans performed at this facility utilize dose optimization techniques as appropriate to the ex am, including the following: Automated exposure control and adjustment of the mA and/or KV according to patient size (this includes techniques or standardized protocols for targeted exams where dose is indication/reason for exam). IV CONTRAST: Administered ORAL CONTRAST: None COMPARISON: Contrast enhanced abdomen and pelvis CT of 09/01/2020 FINDINGS: LOWER CHEST: Small hiatal hernia. There is mild wall thickening in the herniated gastric fundus. Trac e gas in the right ventricle, possibly related to IV contrast injection. LIVER: Unremarkable BILIARY SYSTEM: Gallbladder is unremarkable. Bile ducts are not dilated. PANCREAS: Unremarkable SPLEEN: Unremarkable ADRENALS: Normal right adrenal gland. Hypodense left adrenal mass is redemonstrated, measuring 3.5 x 3.0 x 3.9 cm (oblique transverse by oblique AP by craniocaudal extent). At the comparable level, it measured 3.5 x 3.3 x 3.4 cm. KIDNEYS & URETERS: Unremarkable BLADDER: Underdistended urinary bladder showing mild diffuse bladder wall thickening. REPRODUCTIVE ORGANS: Unremarkable GASTROINTESTINAL: No findings of bowel obstruction or perforation is seen. There is mild mesenteric h yperemia in the right lower quadrant abdomen near the ileocecal valve. Some motion artifact is presen t, obscuring detail as well. Appendix is normal. MESENTERY/PERITONEUM/RETROPERITONEUM: Unremarkable VASCULAR: Few scattered calcifications in the abdominal aorta. LYMPH NODES: No adenopathy OSSEOUS & SOFT TISSUES: Unremarkable IMPRESSION: 1. There is a hiatal hernia showing wall thickening in the gastric fundus. This could contribute to a bdominal pain. Consider correlation with endoscopy if clinically warranted. 2. An adrenal mass on the left remains present measuring up to 3.9 cm, nearly 4 cm. Recommend a surgi alicia consult to consider appropriateness of resection. 3. Some mild mesenteric hyperemia in the right lower quadrant abdomen is evident. Correlate with clin ical exam and consider follow-up if symptoms persist or worsen. Electronically signed by: Lizzeth Khan MD (02/19/2021 12:43 PM) [id number]
[2021-02-19] MEDS ORDERED: KETOROLAC 15 MG/ML VIAL. IVP ONE (13:15)
[2021-02-19 13:55] LABS: BARBITURATES NEG (NEG); BENZODIAZEPINES NEG (NEG); CANNABINOIDS NEG (NEG); COCAINE POS (NEG); METHADONE NEG (NEG); OPIATES NEG (NEG); PHENCYCLIDINE NEG (NEG)
[2021-02-19 13:56] LABS: AMPHETAMINE/METHAMPHETAMINE NEG (NEG)
[2021-02-19] MEDS ORDERED: ONDA4TAB12 PO (14:01)
[2021-02-19] MEDS ORDERED: HYOS0.1265 SL (14:01)
[2021-02-19] MEDS ORDERED: FAMO-63 PO (14:01)
[2021-02-19 14:24] LABS: BACTERIA,URINE 0 /HPF (0-FEW); BILIRUBIN,URINE NEG (NEG); CLARITY,URINE CLEAR; COLOR,URINE YELLOW; GLUCOSE,URINE NEG (NEG); NITRITE,URINE NEG (NEG); SQUAMOUS EPITHELIAL CELL,UR OCC /LPF; UROBILINOGEN,URINE 0.2 mg/dL (0.2 mg/dL)
[2021-02-19 14:30] VITALS: BP 110/73
== END 2021-02-19 14:45 | disposition home or self-care (01) ==
LOC: ER 11:10 → MERGE 11:10 → ER 14:45
DX: E27.8 Other specified disorders of adrenal gland (principal); E87.2 Acidosis; R10.84 Generalized abdominal pain; F14.10 Cocaine abuse, uncomplicated; G89.29 Other chronic pain; R11.2 Nausea with vomiting, unspecified; R19.7 Diarrhea, unspecified; F17.210 Nicotine dependence, cigarettes, uncomplicated; Z88.0 Allergy status to penicillin
CPT/HCPCS: 36415; 74177; 80053; 80307; 81001; 82553; 83605; 83690; 83735; 84484; 85025; 85610; 85730; 87086; 96361; 96374; 96375; 99285; C9113; G0480; J1885; J2405; J7030; Q9967

== ENCOUNTER 2021-04-18 20:10 | Emergency (ER) | payer SELFPAY ==
[~2021-04-18 20:10] MED LIST changes: +HYOS0.1265 SL; +ONDA4TAB12 PO
== END 2021-04-18 20:15 | disposition left against medical advice (07) ==
LOC: ER 20:10
DX: R10.9 Unspecified abdominal pain (principal); Z53.21 Procedure and treatment not carried out due to patient leaving prior to being seen by health care provider

== ENCOUNTER 2021-11-26 10:05 | Emergency (ER) | payer SELFPAY ==
[~2021-11-26] VITALS: Ht 170.2 cm; Wt 63.6 kg
[~2021-11-26 10:05] MED LIST changes: +DICY20TA PO; -DICY20TA3 PO
[2021-11-26] MEDS ORDERED: IOHEXOL 350 MG/ML 100 ML VIAL. IV ONE (12:15)
--- NOTE | 2021-11-26 12:35 | RAD ---
Portable chest x-ray without comparison for epigastric pain. FINDINGS: The extreme costophrenic sulci are not included on the film, however there are no large or moderate pleural effusions. Lungs are clear. No suspicious lung nodules or masses. Heart size within normal limits. IMPRESSION: 1. No acute cardiopulmonary abnormality. Electronically signed by: Be Woodson MD (11/26/2021 12:33 PM) [id number]
[2021-11-26 12:38] LABS: BASO % 0 % (0-3); EOS # 0.3 x10^3/uL (0.0-0.7); EOS % 3 % (0-3); HEMATOCRIT 47.6 % (39.0-53.0); HEMOGLOBIN 15.8 g/dL (13.0-17.5); LYMPH # 2.2 x10^3/uL (1.0-4.8); LYMPH % 27 % (24-48); MEAN CORPUSCULAR HEMOGLOBIN 30 pg (25-35); MEAN CORPUSCULAR HGB CONC 33 g/dL (31-37); MEAN CORPUSCULAR VOLUME 90 fL (79-100); MONO # 0.5 x10^3/uL (0.0-1.1); MONO % 7 % (0-9); NEUT # 5.2 x10^3uL (1.8-7.7); NEUT % 63 % (31-73); PLATELET COUNT 277 x10^3/uL (140-400); RED BLOOD COUNT 5.32 x10^6/uL (4.30-5.70); RED CELL DISTRIBUTION WIDTH 13.7 % (11.5-14.5); WHITE BLOOD COUNT 8.2 x10^3/uL (4.0-11.0)
[2021-11-26 12:46] LABS: CALCIUM 8.9 mg/dL (8.5-10.1); CREATININE 1.1 mg/dL (0.7-1.3); GFR 69.8; POTASSIUM 4.2 mmol/L (3.5-5.1)
--- NOTE | 2021-11-26 12:50 | RAD ---
EXAM: CT Abdomen and Pelvis with IV contrast CLINICAL HISTORY: Reason: upper abd pain / Spl. Instructions: OMNI 300 75 ML / History: . COMPARISON: CT from 09/01/2020 TECHNIQUE: Helical CT of the abdomen and pelvis was performed following the administration of intrave nous contrast. Axial, coronal and sagittal reformatted images were generated. PQRS compliance statement - One or more of the following individualized dose reduction techniques wer e utilized for this study: 1. Automated exposure control 2. Adjustment of the mA and/or kV according to patient size 3. Use of iterative reconstruction technique FINDINGS: Lower Chest: Visualized lung bases are clear. Heart size is normal. Effusion. Abdomen and Pelvis: Liver, spleen, pancreas, and gallbladder are unremarkable. Similar 3.1 cm mass in the left adrenal gl and. Right adrenal gland is normal. Kidneys demonstrates symmetric enhancement. No perinephric inflam mation or hydronephrosis. No renal or ureteral calculi. Small hiatal hernia. Stomach is decompressed and unremarkable in appearance. Small and large bowel wi thout obstruction or focal inflammation. Colonic diverticulosis without diverticulitis. Appendix is w ithin normal limits. No free intra-abdominal air or free fluid. No pathologically enlarged abdominal or pelvic adenopathy. Mild aortobiiliac atherosclerotic disease. Bladder is unremarkable. Mildly enlarged prostate gland is unchanged in appearance. Anterior abdomina l wall is unremarkable. Bones: No suspicious osseous lesions or acute fracture. IMPRESSION: 1. No acute abnormality identified within the abdomen or pelvis. 2. Redemonstration of indeterminate mass at the left adrenal gland. Likely represents a benign lesion such as a adrenal adenoma. This would be better evaluated with adrenal MRI protocol if not already d one so. 3. Other chronic/incidental findings, as above. Electronically signed by: Rodríguez Morin DO (11/26/2021 12:47 PM) [id number]
[2021-11-26 12:59] LABS: ALBUMIN 3.8 g/dL (3.4-5.0); DIRECT BILIRUBIN 0.1 mg/dL (0.0-0.2); MAGNESIUM 2.4 mg/dL (1.8-2.4); TOTAL BILIRUBIN 0.6 mg/dL (0.2-1.0); TOTAL PROTEIN 7.4 g/dL (6.4-8.2)
[2021-11-26] MEDS ORDERED: KETOROLAC 15 MG/ML VIAL. IVP ONE (13:15)
[2021-11-26] MEDS ORDERED: FAMO-63 PO (13:19)
--- NOTE | 2021-11-26 13:20 | PHYS DOC ---
Past History Additional Past Medical Histor: Adrenal mass, chronic abd pain Past Surgical History: No Surgical History Smoking: Cigarettes Alcohol Use: None Drug Use: Cocaine, Marijuana General Adult EDM: Chief Complaint: ABDOMINAL PAIN HPI: HPI: 56 yo M PMH tobacco use, presents to the ed with c/o upper abdominal pain described as sharp and nonradiating that woke patient up a few hours prior. Last bowel movement was in the past 24 hours, normal brown color. States pain is intermittent, worsened with food. Has no past surgical history. Denies any binge alcohol use, marijuana or IV drug use. Denies any falls or trauma. Has a known history of gastritis, takes Pepcid. Review of Systems: Review of Systems: Constitutional: Denies fever or chills Eyes: Denies change in visual acuity HENT: Denies nasal congestion or sore throat Respiratory: Denies cough or shortness of breath Cardiovascular: Denies chest pain or edema GI: Denies nausea, vomiting, bloody stools or diarrhea : Denies dysuria or hematuria Musculoskeletal: Denies back pain or joint pain Integument: Denies rash or diaphoresis Neurologic: Denies headache, focal weakness or sensory changes Endocrine: Denies polyuria or polydipsia Lymphatic: Denies swollen glands Psychiatric: Denies depression or anxiety Current Medications: Current Meds: Current Medications Medications (Trade) Dose Ordered Sig/Martina Start Time Stop Time Status Last Admin Dose Admin Iohexol (Omnipaque 350 Mg/ml) 100 ml 1X ONCE 11/26/21 12:15 11/26/21 12:16 DC 11/26/21 12:16 100 ML Allergies: Allergies: Allergies Coded Allergies Type Severity Reaction Last Updated Verified Penicillins Allergy Intermediate 09/08/20 Yes Physical Exam: PE: Constitutional: Well developed, well nourished, no acute distress lying supine in stretcher, non-toxic appearance, thin HENT: Normocephalic, atraumatic, Eyes: EOMI, conjunctiva normal, no discharge. Neck: Normal range of motion, supple, Cardiovascular: S1/2 present, regular rhythm Lungs & Thorax: Speaking in full sentences, bilateral equal chest rise, no tachypnea or increased work of breathing Abdomen: soft, reports epigastric tenderness, no Alexander sign, no McBurney's point tenderness, no distention Skin: Warm, dry, no erythema, no rash. [] Extremities: No tenderness, no cyanosis, no lower extremity edema Neurologic: Alert and oriented X 3, normal motor function, normal sensory function, no focal deficits noted. [] Psychologic: Affect normal, judgement normal, mood normal. [] Current Patient Data: Labs: Laboratory Tests Test 11/26/21 12:11 White Blood Count 8.2 x10^3/uL (4.0-11.0) Red Blood Count 5.32 x10^6/uL (4.30-5.70) Hemoglobin 15.8 g/dL (13.0-17.5) Hematocrit 47.6 % (39.0-53.0) Mean Corpuscular Volume 90 fL (79-100) Mean Corpuscular Hemoglobin 30 pg (25-35) Mean Corpuscular Hemoglobin Concent 33 g/dL (31-37) Red Cell Distribution Width 13.7 % (11.5-14.5) Platelet Count 277 x10^3/uL (140-400) Neutrophils (%) (Auto) 63 % (31-73) Lymphocytes (%) (Auto) 27 % (24-48) Monocytes (%) (Auto) 7 % (0-9) Eosinophils (%) (Auto) 3 % (0-3) Basophils (%) (Auto) 0 % (0-3) Neutrophils # (Auto) 5.2 x10^3uL (1.8-7.7) Lymphocytes # (Auto) 2.2 x10^3/uL (1.0-4.8) Monocytes # (Auto) 0.5 x10^3/uL (0.0-1.1) Eosinophils # (Auto) 0.3 x10^3/uL (0.0-0.7) Basophils # (Auto) 0.0 x10^3/uL (0.0-0.2) Sodium Level 139 mmol/L (136-145) Potassium Level 4.2 mmol/L (3.5-5.1) Chloride Level 103 mmol/L (98-107) Carbon Dioxide Level 28 mmol/L (21-32) Anion Gap 8 (6-14) Blood Urea Nitrogen 15 mg/dL (8-26) Creatinine 1.1 mg/dL (0.7-1.3) Estimated GFR (Cockcroft-Gault) 69.8 Glucose Level 83 mg/dL (70-99) Calcium Level 8.9 mg/dL (8.5-10.1) Magnesium Level 2.4 mg/dL (1.8-2.4) Total Bilirubin 0.6 mg/dL (0.2-1.0) Direct Bilirubin 0.1 mg/dL (0.0-0.2) Aspartate Amino Transferase (AST) 16 U/L (15-37) Alanine Aminotransferase (ALT) 20 U/L (16-63) Alkaline Phosphatase 93 U/L (46-116) Creatine Kinase 185 U/L (39-308) Troponin I High Sensitivity 5 ng/L (4-75) CN-Jrp-F-Type Natriuretic Peptide 41 pg/mL (0-124) Total Protein 7.4 g/dL (6.4-8.2) Albumin 3.8 g/dL (3.4-5.0) Lipase 66 U/L (73-393) L Vital Signs: Vital Signs Date Time Temp Pulse Resp B/P (MAP) Pulse Ox O2 Delivery O2 Flow Rate FiO2 11/26/21 11:22 110/73 (85) EKG: EKG: [] Radiology/Procedures: Radiology/Procedures: []IMAGING REPORT Signed PATIENT: MARIA A BRANCH DACCOUNT: [id number] : 1965 LOCATION: ER AGE: 56 SEX: M EXAM STATUS: REG ER ORD. PHYSICIAN: ROSALIA TOWNSEND DO REASON: epigastric pain PROCEDURE: CHEST AP ONLY Portable chest x-ray without comparison for epigastric pain. FINDINGS: The extreme costophrenic sulci are not included on the film, however there are no large or moderate pleural effusions. Lungs are clear. No suspicious lung nodules or masses. Heart size within normal limits. IMPRESSION: 1. No acute cardiopulmonary abnormality. Electronically signed by: Be Abraham MD (11/26/2021 12:33 PM) [id number] DICTATED AND SIGNED BY: BE ABRAHAM MD DATE: 11/26/21 1232 CC: PCP,NO; ROSALIA TOWNSEND DO ~MTH0 0 IMAGING REPORT Signed PATIENT: MARIA A BRANCH DACCOUNT: [id number] : 1965 LOCATION: ER AGE: 56 SEX: M EXAM STATUS: REG ER ORD. PHYSICIAN: ROSALIA TOWSNEND DO REASON: upper abd pain PROCEDURE: CT ABD PELV W/ IV CONTRST ONLY EXAM: CT Abdomen and Pelvis with IV contrast CLINICAL HISTORY: Reason: upper abd pain / Spl. Instructions: OMNI 300 75 ML / History: . COMPARISON: CT from 09/01/2020 TECHNIQUE: Helical CT of the abdomen and pelvis was performed following the ad ministration of intravenous contrast. Axial, coronal and sagittal reformatted images were generated. PQRS compliance statement - One or more of the following individualized dose reduction techniques were utilized for this study: 1. Automated exposure control 2. Adjustment of the mA and/or kV according to patient size 3. Use of iterative reconstruction technique FINDINGS: Lower Chest: Visualized lung bases are clear. Heart size is normal. Effusion. Abdomen and Pelvis: Liver, spleen, pancreas, and gallbladder are unremarkable. Similar 3.1 cm mass in the left adrenal gland. Right adrenal gland is normal. Kidneys demonstrates s ymmetric enhancement. No perinephric inflammation or hydronephrosis. No renal or ureteral calculi. Small hiatal hernia. Stomach is decompressed and unremarkable in appearance. Small and large bowel without obstruction or focal inflammation. Colonic divert iculosis without diverticulitis. Appendix is within normal limits. No free intra-abdominal air or free fluid. No pathologically enlarged abdominal or pelvic adenopathy. Mild aortobiiliac atherosclerotic disease. Bladder is unremarkable. Mildly enlarged prostate gland is unchanged in appearance. Anterior abdominal wall is unremarkable. Bones: No suspicious osseous lesions or acute fracture. IMPRESSION: 1. No acute abnormality identified within the abdomen or pelvis. 2. Redemonstration of indeterminate mass at the left adrenal gland. Likely represents a benign lesion such as a adrenal adenoma. This would be better evaluated with adrenal MRI protocol if not already done so. 3. Other chronic/incidental findings, as above. Electronically signed by: Eric Morin DO (11/26/2021 12:47 PM) [id number] DICTATED AND SIGNED BY: ERIC MORIN DO DATE: 11/26/21 1228 CC: PCP,NO; ROSALIA TOWNSEND DO ~MTH0 0 Heart Score: C/O Chest Pain: No Risk Factors: Risk Factors: DM, Current or recent (<one month) smoker, HTN, HLP, family history of CAD, obesity. Risk Scores: Score 0 - 3: 2.5% MACE over next 6 weeks - Discharge Home Score 4 - 6: 20.3% MACE over next 6 weeks - Admit for Clinical Observation Score 7 - 10: 72.7% MACE over next 6 weeks - Early Invasive Strategies Course & Med Decision Making: Course & Med Decision Making Pertinent Labs and Imaging studies reviewed. (See chart for details) Concern for chronic abdominal pain in the setting of known gastritis. Imaging concerning for adrenal nodule which was seen on prior ED visit with similar chief complaint. Patient tolerating oral intake, well-appearing, hemodynamically stable and afebrile. Labs are unremarkable. We will treat conservatively with [id number] analgesia. Will discharge home with strict ED return precautions were given for severe pain, intractable nausea or vomiting, bloody stools or bloody emesis. Encouraged urgent outpatient follow-up with PMD for adrenal mass and GI for definitive management. Life-threatening processes were considered but are low suspicion at this time, given history, physical exam and ED workup. Pt was educated on all prescription medications and adverse effects. All patient's questions were answered and pt was stable at time of discharge. Life/limb-threatening differential includes but is not limited to, aortic dissection, aortic aneurysm, acute coronary syndrome, surgical abdomen ( appendicitis, cholecystitis, ischemic bowel, strangulated hernia, etc), bowel obstruction or volvulus, bladder outlet obstruction, gastrointestinal bleeding, inflammatory bowel disease, peptic ulcer disease, ACS/CAD, sepsis, diverticular disease, ureterolithiasis, nephrolithiasis, testicular torsion,or genitourinary infection. I have spoken with the patient and/or caregivers. I explained the patient's condition, diagnoses and treatment plan based on the information available to me at this time. I have answered the patient and/or caregiver's questions and addressed any concerns. The patient and/or caregivers have a good understanding of patient's diagnosis, condition and treatment plan as can be expected at this point. Vital signs have been stable. Patient's condition is stable and appropriate for discharge from the emergency department. Patient will pursue further outpatient evaluation with primary care physician or other designated or consulting physician as outlined in the discharge instructions. The patient and/or caregivers are agreeable to this plan of care and follow-up instructions have been explained in detail. The patient and/or caregivers have received these instructions in written form and have expressed an understanding of the discharge instructions. The patient and/or caregivers are aware that any significant change of condition or worsening of symptoms should prompt immediate return to this or the closest emergency department or call to [facility] Disclaimer: Cornelius Disclaimer: This electronic medical record was generated, in whole or in part, using a voice recognition dictation system. Departure Departure: Impression: Primary Impression: Chronic abdominal pain Additional Impressions: Left adrenal mass Gastritis Disposition: HOME / SELF CARE / HOMELESS Condition: STABLE Referrals: PCP,NO (PCP) Follow up with your pcp in 1-2 days or [facility] [phone] OR [facility]-Dr. Tran [phone] Patient Instructions: Abdominal Pain, Gastritis, Adult Additional Instructions: FOLLOW UP WITH GASTROENTEROLOGY: FOR DEFINITIVE MANAGEMENT of chronic abdominal pain [facility] [address] [place] [id number] EMERGENCY DEPARTMENT GENERAL DISCHARGE INSTRUCTIONS Thank you for coming to [facility] (ED) today and trusting us with you care. We trust that you had a positivie experience in our Emergency Department. If you wish to speak to the department management, you may call the director at . YOUR FOLLOW UP INSTRUCTIONS ARE FOLLOWS: 1. Do you have a private Doctor? If you do not have a private doctor, please ask for a resource list of physicians or clinics that may be able to assist you with follow up care. 2. The Emergency Physician has interpreted your x-rays. The X-Ray specialist will also review them. If there is a change in the findings, you will be notified in 48 hours when at all possible. 3. A lab test or culture has been done, your results will be reviewed and you will be notified if you need a change in treatment. ADDITIONAL INSTRUCTIONS AND INFORMATION: 1. Your care today has been supervised by a physician who is specially trained in emergency care. Many problems require more than one evaluation for a complete diagnosis and treatment. We recommend that you schedule your follow up appointment as recommended to ensure complete treatment of you illness or injury. If you are unable to obtain follow up care and continue to have a problem, or if your condition worsens, we recommend that you return to the ED. 2. We are not able to safely determine your condition over the phone nor are we able to give sound medical advice over the phone. For these safety reasons, if you call for medical advice we will ask you to come to the ED for further evaluation. 3. If you have any questions regarding these discharge instructions please call the ED at [phone]. SAFETY INFORMATION: In the interest of safety, wellness, and injury prevention; we encourage you to wear your sealbelt, if you smoke; quite smoking, and we encourage family to use a protective helmet for bicycling and other sporting events that present an increased risk for head injury. IF YOUR SYMPTOMS WORSEN OR NEW SYMPTOMS DEVELOP, OR YOU HAVE CONCERNS ABOUT YOUR CONDITION; OR IF YOUR CONDITION WORSENS WHILE YOU ARE WAITING FOR YOUR FOLLOW UP APPOINTMENT; EITHER CONTACT YOUR PRIMARY CARE DOCTOR, THE PHYSICIAN WHOSE NAME AND NUMBER YOU WERE GIVEN, OR RETURN TO THE ED IMMEDIATELY. Scripts Famotidine (PEPCID) 20 Mg Tablet 1 TAB PO BID for gastritis for 30 Days, #60 TAB 0 Refills Prov: ROSALIA TOWNSEND DO 11/26/21 ROSALIA TOWNSEND DO Nov 26, 2021 13:20
[2021-11-26 13:54] VITALS: BP 112/76
--- NOTE | 2021-11-26 15:49 | EKG ---
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
== END 2021-11-26 13:55 | disposition home or self-care (01) ==
LOC: ER 10:05
DX: E27.8 Other specified disorders of adrenal gland (principal); K29.70 Gastritis, unspecified, without bleeding; G89.29 Other chronic pain; F17.210 Nicotine dependence, cigarettes, uncomplicated; Z88.0 Allergy status to penicillin
CPT/HCPCS: 36415; 71045; 74177; 80048; 80076; 82550; 83690; 83735; 83880; 84484; 85025; 93005; 96374; 99285; J1885; Q9967